=== PATIENT | female | born 1970 | race Caucasian/White ===

== ENCOUNTER → 2016-10-28 | Day surgery (SDC) | payer OTHER ==
[~2016-10-28] MED LIST: AMBIEN10 MG PO; FISH OIL300 MG PO; IBUPROFEN800 MG PO; JANUMET 50-1,1 UDTAB PO; KLONOPIN1 MG PO; LAMICTAL PO; LASIX20 MG; LEVOTHROID200 MCG PO; LINZESS290 MCG PO; LOVENOX40 MG/0.4 INJ; MAXZIDE 75-501 EACH; METFORMIN HCL500 M1 PO; NASONEX17 GM; NEURONTIN PO; NORCO 5/325 TAB1 TAB PO; OMEGA-31000 M1 PO; PANTOPRAZOLE SO40 MG PO; PHENERGAN12.5 MG PO; PRILOSEC PO; SYNTHROID PO; TAGAMET200 MG; TANZEUM30 MG/0.5; VITAMIN D50000 UNIT PO
--- NOTE | ~2016-10-28 | OR ---
Unit #: [id number] #: [id number] Patient: NERISSA FORREST [id number] [address] [place], [place] [address] [id number] O MR#: [id number] NAME: NERISSA FORREST ROOM: Date of Procedure: 10/28/2016 Admission Date: 10/28/2016 Surgeon: Eamon Aguilar Jr., M.D. : 1970 Attending Physician: Eamon Aguilar Jr., M.D. Primary Care Physician: Mynor Yin M.D. OPERATIVE REPORT INDICATION FOR PROCEDURE The patient is a 45-year-old white female, who recently presented to the office complaining of a cystic lesion of the right knee. She has had previous knee surgery, but this appears not to be connected to that area. This has grown in size and caused significant pain. 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 She is brought in this time for removal of both these under local anesthesia. She understands the procedure including the risks, including that of recurrence, infection, poor healing and bleeding and consents. 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 ANESTHESIA 1% Xylocaine with epinephrine locally. PROCEDURE PERFORMED Excision of cystic lesion of the right knee and fibroepithelioma of the left lower quadrant abdominal wall area. DESCRIPTION OF PROCEDURE The patient was positioned in supine position. After being prepped and draped in routine fashion, she was anesthetized locally in the area of the cystic lesion of the right knee. The area was locally anesthetized with 1% Xylocaine with epinephrine. An elliptical incision was made around the cystic lesion with it being totally excised from the surrounding tissue with a #15 blade scalpel. This was excised down to the deeper subcutaneous tissue and what appeared to be some fascia or ligamental tissue and completely excised. After it was removed, it was sent to pathology. Hemostasis was achieved with Bovie cautery. The deeper tissue was approximated with interrupted 3-0 Vicryl sutures. Skin edges were approximated with continuous 5-0 nylon suture. Ointment and sterile dressing were applied externally. The fibroepithelioma of the left abdominal wall was then picked up and removed with #15 blade scalpel and after it was removed, there was no need for any sutures. Band-Aid was applied externally. Estimated blood loss for both procedures was minimal. No drains used. No complications. The patient was discharged in Unit #: [id number] #: [id number] Patient: NERISSA FORREST satisfactory condition. Dictated by... Eamon Aguilar Jr., M.D. JMB/cee TD: 10/29/2016 01:37 JOB #: [id number] CC: Mynor Yin M.D. OPERATIVE REPORT Page 1 of 1 X Eamon Aguilar MD X PROCEDURE OPERATIVE NOTE
--- NOTE | ~2016-10-28 | HP ---
Unit #: [id number] #: [id number] Patient: NERISSA FORREST [id number] [address] [place], [place] [address] [id number] O MR#: [id number] NAME: NERISSA FORREST ROOM: Age: 46 Sex: F Admission Date: 10/28/2016 : 1970 Attending Physician: Eamon Aguilar Jr., M.D. Primary Care Physician: Mynor Yin M.D. HISTORY AND PHYSICAL CHIEF COMPLAINT Cyst of the right knee and skin tag of the left abdominal wall area. HISTORY OF PRESENT ILLNESS The patient is a 45-year-old white female recently was seen in the office complaining of a cyst of the right knee which has been causing pain and sensitivity, especially if she bumps it and it has been enlarging in size. She also had a small skin tag of the left abdominal wall area that she would like removed. PAST MEDICAL HISTORY SERIOUS ILLNESSES: The patient has a known past history for melanoma, biopsy of the right arm which is benign. SURGERY: Fixation of the bones of the right leg, hysterectomy and seizures. SOCIAL HISTORY The patient is single, lives at home with family. Normal good appetite. No recent weight change. FAMILY HISTORY Noncontributory. IMMUNIZATIONS Up to date. ALLERGIES Sulfa. MEDICATIONS She is on multiple medications that are included on the nursing sheet. REVIEW OF SYSTEMS A 12-system review has been performed which is unremarkable except noted in the present illness. PHYSICAL EXAMINATION GENERAL APPEARANCE: The patient is a well-developed, well-nourished 45-year-old white female in no acute distress. VITAL SIGNS: The patient is afebrile. Vital signs are normal. HEENT: Unremarkable. NECK: Supple. CHEST: There is equal bilateral expansion with bilateral equal breath Unit #: [id number] #: [id number] Patient: NERISSA FORREST sounds. LUNGS: Clear bilaterally. HEART: Regular rhythm without murmurs or gallops. There is no evidence of cardiomegaly clinically. ABDOMEN: Soft, nontender, benign without palpable mass or organomegaly. There is no gross abdominal distension. No guarding or rebound. Active bowel sounds present. No evidence of ascites or hernias. EXTREMITIES: Full range of motion. 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 NEUROLOGIC: Grossly intact. IMPRESSION The patient has a cyst of the right knee and a skin tag of the left abdominal wall area. The plan will be to remove these under local anesthesia. The patient understands the procedure including the risks and consents. Dictated by Eamon Aguilar Jr., M.D. LISY/betty TD: 11/10/2016 13:37 JOB #: [id number] HISTORY AND PHYSICAL Page 1 of 1 X Eamon Aguilar MD X HISTORY AND PHYSICAL
== END | disposition home or self-care (01) ==
LOC: CSUR 05:58
DX: L72.0 Epidermal cyst (principal); L91.8 Other hypertrophic disorders of the skin; E03.9 Hypothyroidism, unspecified; F17.210 Nicotine dependence, cigarettes, uncomplicated; Z90.710 Acquired absence of both cervix and uterus; Z88.2 Allergy status to sulfonamides; M48.02 Spinal stenosis, cervical region; E11.9 Type 2 diabetes mellitus without complications; E78.00 Pure hypercholesterolemia, unspecified; Z87.19 Personal history of other diseases of the digestive system; Z79.899 Other long term (current) drug therapy; Z81.1 Family history of alcohol abuse and dependence; Z82.8 Family history of other disabilities and chronic diseases leading to disablement, not elsewhere classified; Z83.3 Family history of diabetes mellitus; Z80.9 Family history of malignant neoplasm, unspecified; L08.9 Local infection of the skin and subcutaneous tissue, unspecified
CPT/HCPCS: 82947; 88304

== ENCOUNTER → 2017-01-12 | Outpatient (CLI) | payer OTHER ==
--- NOTE | ~2017-01-12 | CR281 ---
[facility]. [facility] A Service of [facility] & [facility] RADIOLOGY TEXT RESULTS PATIENT: NERISSA SELF LOCATION: [facility] : 72 UNIT #: [id number] AGE: [address]: Mynor Yin MD SEX: F ORDER DR: [id number] [place] [id number] O MR#: [id number] Acc #: [id number] NAME: NERISSA SELF : 1970 SEX: F STUDY DATE/TIME: 01/12/2017 16:12 UNIT: [facility] ROOM: STUDY DESCRIPTION: CR Wrist Min 3 View Lt Attending Physician: Mynor Yin M.D. Referring Physician: Mynor Yin M.D. Ordering Physician: Mynor Yin M.D. Primary Care Physician: Mynor Yin M.D. MEDICAL IMAGING REPORT This report is preliminary unless electronic signature is present. EXAM Left wrist 01/12/17 HISTORY 46-year-old female with left hand and wrist pain for several months. COMPARISON Left hand, same date. FINDINGS Three views of the left wrist demonstrate no acute fracture or dislocation. No bony erosions. Joint spaces are adequately maintained. Soft tissues are unremarkable. IMPRESSION Unremarkable left wrist. Dictated by... Devon Lara M.D. THIS IS AN ELECTRONICALLY VERIFIED REPORT Devon Lara M.D. at 01/13/2017 9:10 AM LIDIA/cydney TD: 01/12/2017 21:36 JOB #: [id number] MEDICAL IMAGING REPORT Page 1 of 1
--- NOTE | ~2017-01-12 | CR141 ---
[facility] A Service of [facility] & [facility] RADIOLOGY TEXT RESULTS PATIENT: NERISSA SELF LOCATION: [facility] : 72 UNIT #: [id number] AGE: [address]: Mynor Yin MD SEX: F ORDER DR: [id number] [place] [id number] O MR#: [id number] Acc #: [id number] NAME: NERISSA SELF : 1970 SEX: F STUDY DATE/TIME: 01/12/2017 16:12 UNIT: [facility] ROOM: STUDY DESCRIPTION: CR Hand Min 3 Views Lt Attending Physician: Mynor Yin M.D. Referring Physician: Mynor Yin M.D. Ordering Physician: Mynor Yin M.D. Primary Care Physician: Mynor Yin M.D. MEDICAL IMAGING REPORT This report is preliminary unless electronic signature is present. EXAM Left hand, 01/12/17. HISTORY 46-year-old female with left hand pain for several months. COMPARISON Left wrist, same date. FINDINGS Three views of the left hand demonstrate no acute fracture or dislocation. No bony erosions. Joint spaces are adequately maintained. Soft tissues are unremarkable. IMPRESSION Unremarkable left hand. Dictated by... Devon Lara M.D. THIS IS AN ELECTRONICALLY VERIFIED REPORT Devon Lara M.D. at 01/13/2017 9:10 AM LIDIA/timothy TD: 01/12/2017 21:42 JOB #: [id number] MEDICAL IMAGING REPORT Page 1 of 1
== END | disposition home or self-care (01) ==
LOC: SRAD 16:06
DX: M25.532 Pain in left wrist (principal); M79.642 Pain in left hand
CPT/HCPCS: 73110; 73130

== ENCOUNTER 2017-02-24 22:16 | Emergency (ER) | payer OTHER ==
[~2017-02-24] VITALS: Ht 165.1 cm; Wt 77.1 kg
[~2017-02-24 22:16] MED LIST changes: -LASIX20 MG; -MAXZIDE 75-501 EACH; -TANZEUM30 MG/0.5
[2017-02-24] MEDS ORDERED: LASIX20 MG (22:23)
[2017-02-24] MEDS ORDERED: MAXZIDE 75-501 EACH (22:24)
[2017-02-24] MEDS ORDERED: TANZEUM30 MG/0.5 (22:24)
== END 2017-02-25 01:09 | disposition home or self-care (01) ==
LOC: SED 22:16
DX: R51 Headache (principal); F17.210 Nicotine dependence, cigarettes, uncomplicated; Z79.899 Other long term (current) drug therapy; Z88.2 Allergy status to sulfonamides
CPT/HCPCS: 96372; 99283; J1885; J3030

== ENCOUNTER → 2017-04-05 | Outpatient (CLI) | payer OTHER ==
[~2017-04-05] MED LIST changes: +LASIX20 MG; +MAXZIDE 75-501 EACH; +TANZEUM30 MG/0.5
--- NOTE | ~2017-04-05 | CR172 ---
[facility] A Service [facility] RADIOLOGY TEXT RESULTS PATIENT: NERISSA SELF LOCATION: [facility] : 72 UNIT #: [id number] AGE: [address]: Mynor Yin MD SEX: F ORDER DR: [id number] [place] [id number] O MR#: [id number] Acc #: [id number] NAME: NERISSA SELF : 1970 SEX: F STUDY DATE/TIME: 04/05/2017 10:35 UNIT: [facility] ROOM: STUDY DESCRIPTION: CR Knee 3 Views Lt Attending Physician: Mynor Yin M.D. Referring Physician: Mynor Yin M.D. Ordering Physician: Mynor Yin M.D. Primary Care Physician: Mynor Yin M.D. MEDICAL IMAGING REPORT This report is preliminary unless electronic signature is present. EXAM Three views of left knee. DATE 04/05/2017 HISTORY Left anterior knee pain, swelling and bruising for 2 days after falling on pavement. COMPARISON Left knee radiographs 09/21/2014. FINDINGS No acute fracture or joint dislocation is seen. Tiny marginal osteophytes project from the lateral compartment. Patella is appropriately located. No definite joint effusion is seen. There is mild prepatellar soft tissue swelling. IMPRESSION 1. Mild prepatellar soft tissue swelling. No acute osseous abnormality. Dictated by... Lianna Jarquin M.D. THIS IS AN ELECTRONICALLY VERIFIED REPORT Lianna Jarquin M.D. at 04/06/2017 12:27 PM [facility] TD: 04/05/2017 16:48 JOB #: [id number] [facility] A Service [facility] RADIOLOGY TEXT RESULTS PATIENT: NERISSA SELF LOCATION: [facility] : 72 UNIT #: [id number] AGE: [address]: Mynor Yin MD SEX: F ORDER DR: MEDICAL IMAGING REPORT Page 1 of 1
== END | disposition home or self-care (01) ==
LOC: SRAD 10:19
DX: M25.562 Pain in left knee (principal); M79.89 Other specified soft tissue disorders
CPT/HCPCS: 73562